=== PATIENT | male | born 1980 | race Caucasian/White ===

== ENCOUNTER 2020-07-14 22:37 | Emergency (ER) | payer MEDICAID ==
[~2020-07-14] VITALS: Ht 165.1 cm; Wt 81.6 kg
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
[2020-07-14 22:48] VITALS: BP 141/81
[2020-07-14] MEDS ORDERED: IBUPROFEN 400 MG TABLET ONE (23:21)
--- NOTE | 2020-07-14 23:27 | NUR ---
RADIOLOGY AT BEDSIDE FOR XRAY
[2020-07-14] MEDS ORDERED: IBUPROFEN 400 MG TABLET PO ONE (23:30)
[2020-07-14] MEDS ORDERED: IBUP-1957 PO (23:52)
== END 2020-07-15 00:25 | disposition home or self-care (01) ==
LOC: ER 22:47
DX: S80.212A Abrasion, left knee, initial encounter (principal); W22.8XXA Striking against or struck by other objects, initial encounter; Y93.89 Activity, other specified; Y92.89 Other specified places as the place of occurrence of the external cause; Y99.8 Other external cause status
CPT/HCPCS: 73564-TC

== ENCOUNTER 2023-10-23 20:04 | Emergency (ER) | payer MEDICAID ==
[~2023-10-23] VITALS: Ht 170.2 cm; Wt 106.6 kg
[~2023-10-23 20:04] MED LIST: IBUP-1957 PO
[2023-10-23] MEDS ORDERED: CYCL5TAB PO (23:14)
[2023-10-23] MEDS ORDERED: IBUP-1955 PO (23:14)
[2023-10-23] MEDS ORDERED: ONDA4TAB5 PO (23:14)
[2023-10-23 23:30] VITALS: BP 134/83; TEMP 98; O2SAT 98
== END 2023-10-23 23:31 | disposition home or self-care (01) ==
LOC: ER 20:05
DX: S09.8XXA Other specified injuries of head, initial encounter (principal); R42 Dizziness and giddiness; R11.2 Nausea with vomiting, unspecified; V43.52XA Car driver injured in collision with other type car in traffic accident, initial encounter; Y93.89 Activity, other specified; Y92.488 Other paved roadways as the place of occurrence of the external cause; Y99.8 Other external cause status
CPT/HCPCS: 70450-TC

== ENCOUNTER 2024-09-05 03:03 | Emergency (ER) | payer MEDICAID, OTHER ==
[~2024-09-05] VITALS: Ht 162.6 cm; Wt 65.8 kg
[~2024-09-05 03:03] MED LIST changes: +CYCL5TAB PO; +IBUP-1955 PO; +ONDA4TAB5 PO
[2024-09-05] MEDS ORDERED: ASPIRIN 325 MG TABLET ONE (03:31)
[2024-09-05] MEDS ORDERED: NITROGLYCERIN 0.4 MG/TAB BOTTLE ONE (03:31)
[2024-09-05] MEDS: NITROGLYCERIN 0.4 MG/TAB BOTTLE SL ONE (03:33)
[2024-09-05] MEDS: ASPIRIN 325 MG TABLET PO ONE (03:33)
[2024-09-05 03:38] LABS: PLATELET COUNT (AUTO) 301 K/uL (150-450); RED BLOOD CELL COUNT(AUTO) 4.95 MIL/uL (4.5-6.0); RED CELL DISTRIBUTION WIDTH 14.1 % (11.5-15.0); WHITE BLOOD COUNT (AUTO) 8.3 K/uL (4.3-11.0)
[2024-09-05 03:44] LABS: CALCIUM, SERUM 9.4 mg/dL (8.5-10.1); CREATININE 0.8 mg/dL (0.6-1.3); SODIUM SERUM 138 mmol/L (136-145); UREA NITROGEN, BLOOD 15 mg/dL (7-18)
[2024-09-05 03:56] LABS: NT-PRO BNP 19 pg/mL (0-125)
[2024-09-05 08:23] VITALS: BP 139/81; TEMP 98.5; O2SAT 98
== END 2024-09-05 08:24 | disposition left against medical advice (07) ==
LOC: ER 03:08
DX: R07.89 Other chest pain (principal); R53.1 Weakness; R42 Dizziness and giddiness; E78.5 Hyperlipidemia, unspecified; R06.02 Shortness of breath; Z79.1 Long term (current) use of non-steroidal anti-inflammatories (NSAID); Z87.891 Personal history of nicotine dependence; Z88.7 Allergy status to serum and vaccine
CPT/HCPCS: 36415; 71045-TC; 80048-TC; 83880; 84484-TC; 85025-TC